=== PATIENT | male | born 1960 | race Caucasian/White ===

== ENCOUNTER 2023-05-10 09:47 | Emergency (ER) | payer OTHER, SELFPAY ==
[2023-05-10 09:55] VITALS: BP 147/80; PULSE 87; RESP 16; TEMP 36.8; O2SAT 99
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
[2023-05-10 10:23] LABS: Appearance Urine Clear (Clear); Bilirubin Urine Negative (Negative); Blood Urine Negative (Negative); Color Urine Yellow (Yellow); Glucose Urine UA Negative (Negative); Ketones Urine Negative (Negative); Leukocyte Esterase Ur Negative LEU/UL (Negative); Nitrate Urine Negative (Negative); Protein Urine Negative (Negative); Specific Grav Ur 1.007 (1.001-1.035); Urobilinogen Urine 0.2 mg/dL (<2.0)
[2023-05-10 10:27] LABS: Basophils Absolute Auto 0.1 K/mm3 (0.0-0.1); Basophils Percent Auto 0.8 % (0.2-1.2); Eosinophils Absolute Auto 0.6 K/mm3 (0-0.3); Eosinophils Percent Auto 6.3 % (0-4.4); Hematocrit 39.1 % (42.0-52.0); Hemoglobin 13.1 g/dL (14.0-18.0); Immature Granulocyte Absolute 0.02 K/mm3 (0.00-0.031); Immature Granulocyte Percent A 0.2 % (0-0.5); Lymphocytes Absolute Auto 2.11 K/mm3 (0.9-3.2); Lymphocytes Percent Auto 22.1 % (18.3-44.2); Mean Corpuscular HGB Conc 33.5 g/dl (32-36); Mean Corpuscular Hemoglobin 28.9 pg (26-34); Mean Corpuscular Volume 86.3 fl (80-100); Mean Platelet Volume 10.6 fl (7.4-10.4); Monocytes Absolute Auto 0.8 K/mm3 (0.1-0.6); Monocytes Percent Auto 8.8 % (2.6-8.5); Neutrophils Absolute Auto 5.9 K/mm3 (1.3-6.7); Neutrophils Percent Auto 61.8 % (45.5-73.1); Platelet Count Result 257 k/mm3 (150-375); Red Blood Count 4.53 M/mm3 (4.6-6.20); Red Cell Distribution Width 13.5 % (11.5-14.5); White Blood Count 9.6 K/mm3 (4.5-10.0)
[2023-05-10 10:28] LABS: Add Urine Microscopic? NO
[2023-05-10 10:30] LABS: Alanine Aminotransferase 33 U/L (6-50); Albumin Level 4.5 g/dL (3.5-5.1); Alkaline Phosphatase 91 U/L (38-126); Anion Gap 9 mmol/L (8-16); Aspartate Amino Transferase 27 U/L (17-59); Bilirubin,Total 0.8 mg/dL (0.2-1.3); Blood Urea Nitrogen 13 mg/dL (9-20); Calcium 9.9 mg/dL (8.4-10.2); Carbon Dioxide 24 mmol/L (22-30); Chloride 109 mmol/L (98-107); Estimated CRCL calculation 89 ml/min; Estimated Glomerular Filt Rate > 60; Glucose 110 mg/dL (65-110); Potassium 3.8 mmol/L (3.4-5.0); Sodium 142 mmol/L (137-145)
[2023-05-10 10:39] LABS: Acetaminophen < 10 ug/mL (10-30); Ethanol < 10 mg/dL (<10); Salicylate < 1.0 mg/dL (2-20)
[2023-05-10 10:41] LABS: Amphetamine Screen Urine Negative (Negative); Barbiturate Screen Urine Negative (Negative); Benzodiazepines Screen Urine Negative (Negative); Cannabinoid Screen Urine Positive (Negative); Cocaine Screen Urine Negative (Negative); Methadone Screen Urine Negative (Negative); Opiate Screen Urine Negative (Negative); Phencyclidine Screen Urine Negative (Negative)
[2023-05-10 10:56] LABS: SARS-CoV-2 RNA PCR Negative (Negative)
--- NOTE | 2023-05-10 11:07 | PC.NURSE ---
Officer Qasim called and states he will do a report on patient.
--- NOTE | 2023-05-10 11:52 | PC.NURSE ---
This RN found the pt in the hallway asking for his dog. Pt was told he needed to wait in his room while the dog was brought in. Pt refused, stated he was leaving to get his dog and proceeded to exit through the ambulance bay. ED security located pt and pt is refusing to come back into ED. Katherin COUGHLIN contacted to help assist pt back into room.
== END 2023-05-10 11:52 | disposition left against medical advice (07) ==
PROVIDERS: Emergency Provider Physician Assistant
DX: R45.850 Homicidal ideations (principal); Z20.822 Contact with and (suspected) exposure to COVID-19; Z98.890 Other specified postprocedural states
CPT/HCPCS: 36415; 80053; 80307; 81003; 84443; 85025; 87635; 96372; 99284; A9270; J2060

== ENCOUNTER 2023-05-10 12:49 | Emergency (ER) | payer OTHER, SELFPAY ==
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
[2023-05-10] MEDS: ACETAMINOPHEN 500 MG TABLET 1000 MG PO (12:38)
[2023-05-10] MEDS: LORazepam INJ (*CRX) 2 MG/ML VIAL 0.5 MG IM ×2 (12:54→19:01)
[2023-05-10] MEDS: IBUPROFEN 600 MG TABLET PO (15:39)
--- NOTE | 2023-05-10 19:00 | PC.NURSE ---
pt. angry, yelling at staff and threatening to leave. ED security at bedside. pt. not agreeable to get an updated set of Vital signs. pt. skin pink warm and dry. pt. has no obvious signs of distress.
[2023-05-10] MEDS: HYDROcodone/acetaminophen (*CRX) 5-325 MG TABLET 1 TAB PO (19:01)
[2023-05-11] MEDS: LORazepam INJ (*CRX) 2 MG/ML VIAL 1 MG IM (03:41)
--- NOTE | 2023-05-11 04:18 | PC.NURSE ---
pt. 's number martin.
[2023-05-11] MEDS: hydrOXYzine HCL 25 MG TABLET 50 MG PO (04:49)
[2023-05-11] MEDS: DIVALPROEX SODIUM ER 500 MG TAB.24H PO (04:49)
[2023-05-11] MEDS: DULoxetine HCL 20 MG CAPSULE.DR PO (04:49)
[2023-05-11 09:26] VITALS: BP 123/79; PULSE 88; RESP 20; O2SAT 99
--- NOTE | 2023-05-11 11:05 | PC.NURSE ---
Report given from laura Wright currently laying in bed. Service dog at bedside.
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
--- NOTE | 2023-05-11 11:55 | PC.NURSE ---
[facility] here to re-evaluate patient.
--- NOTE | 2023-05-11 12:10 | PC.NURSE ---
Pt denying thoughts of HI toward any individual and denying any thoughts of SI. Dewayne at bedside and Dr. Urbina confirmed with patient.
== END 2023-05-11 12:42 | disposition home or self-care (01) ==
PROVIDERS: Emergency Provider Emergency Medicine
DX: R45.4 Irritability and anger (principal); M79.602 Pain in left arm; Z59.00 Homelessness unspecified; Z79.899 Other long term (current) drug therapy
CPT/HCPCS: 96372; 99284; A9270; J2060